=== PATIENT | male | born 1965 | race Hispanic/Latino ===

== ENCOUNTER 2016-10-18 13:04 | Emergency (ER) | payer OTHER ==
--- NOTE | 2016-10-18 13:49 | Emergency Department Report ---
ED General Adult HPI - General Chief complaint: High BP Stated complaint: htn Time Seen by Provider: 10/18/16 13:49 Source: patient, old records reviewed (from [facility]) Mode of arrival: Ambulatory Limitations: No Limitations - History of Present Illness -: Gradual Associated Symptoms: other (dmd visit for tooth extraction). denies: confusion , chest pain, cough, diaphoresis, fever/chills Treatments Prior to Arrival: none - Related Data Previous Rx's Medication Instructions Recorded Last Taken Type Hydrochlorothiazide [HCTZ] 25 mg PO QDAY #30 tablet 10/18/16 Unknown Rx Allergies Allergy/AdvReac Type Severity Reaction Status Date / Time No Known Allergies Allergy Verified 10/18/16 13:21 ED Review of Systems ROS: Stated complaint: HIGH B/P, COUGH Other details as noted in HPI Comment: All other systems reviewed and negative Constitutional: no symptoms reported, see HPI. denies: chills, diaphoresis, fever, malaise Eyes: as per HPI. denies: eye pain ENT: as per HPI, dental pain. denies: ear pain, throat pain, hearing loss, epistaxis Respiratory: no symptoms reported, see HPI, cough (chronic). denies: orthopnea Cardiovascular: as per HPI. denies: chest pain, palpitations, dyspnea on exertion, orthopnea Endocrine: no symptoms reported, see HPI. denies: excessive sweating, flushing , intolerance to cold, intolerance to heat Gastrointestinal: as per HPI. denies: abdominal pain, nausea Genitourinary: as per HPI. denies: urgency, dysuria Musculoskeletal: as per HPI. denies: back pain Skin: as per HPI. denies: rash, lesions Neurological: as per HPI. denies: headache, weakness, numbness, paresthesias, confusion Psychiatric: as per HPI. denies: anxiety, depression Hematological/Lymphatic: as per HPI. denies: easy bleeding ED Past Medical Hx - Past Medical History Hx Hypertension: Yes (off meds) Additional medical history: HYPERTHYROIDISM - Surgical History Past Surgical History?: No - Family History Family history: no significant - Social History Smoking Status: Never Smoker Substance Use Type: None - Medications Home Medications: Home Medications Medication Instructions Recorded Confirmed Last Taken Type Hydrochlorothiazide [HCTZ] 25 mg PO QDAY #30 tablet 10/18/16 Unknown Rx ED Physical Exam - General Limitations: No Limitations General appearance: alert - Head Head exam: Present: atraumatic - Eye Eye exam: Present: normal appearance - ENT ENT exam: Present: mucous membranes moist, other (caries) - Neck Neck exam: Present: normal inspection - Respiratory Respiratory exam: Present: normal lung sounds bilaterally - Cardiovascular Cardiovascular Exam: Present: regular rate, other (100 on exam) - GI/Abdominal GI/Abdominal exam: Present: soft - Rectal Rectal exam: Present: deferred - Extremities Exam Extremities exam: Present: normal inspection - Back Exam Back exam: Present: normal inspection - Neurological Exam Neurological exam: Present: alert, oriented X3, CN II-XII intact, normal gait, reflexes normal. Absent: abnormal gait, motor sensory deficit - Psychiatric Psychiatric exam: Present: normal affect, normal mood. Absent: depressed, agitated, anxious, flat affect, manic, homicidal ideation, suicidal ideation - Skin Skin exam: Present: warm, dry, intact. Absent: normal color, rash ED Course Vital Signs 10/18/16 13:25 Temperature 98.2 F Pulse Rate 103 H Respiratory 17 Rate Blood Pressure 154/86 O2 Sat by Pulse 98 Oximetry - Reevaluation(s) Reevaluation #1: 10/18/16 14:28 to er from [facility] bc bp was 160/100 prior to tooth extraction they told him it was too high and sent him here he has rx for norco and amox bp dec here no cp no sob on bp meds for htn at one time but stopped them bc no md does not recall the name neuro intact no murillo no focal neuro def medicated here for dental pain rx for hctz follow up pcp pt educated on bp and influence of pain and anxiety informed bp now dec and wo s/s we will restart med- provider 140/80 bp ED Medical Decision Making - Medical Decision Making bp n ow dec- off his meds anxious at [facility] pain w tooth - Differential Diagnosis htn a/c off meds. was at [facility] and bp 160/100- sent here Critical care attestation.: If time is entered above; I have spent that time in minutes in the direct care of this critically ill patient, excluding procedure time. ED Disposition Clinical Impression: Dental caries, Hypertension, Nonadherence to medical treatment Disposition: TO HOME OR SELFCARE Is pt being admited?: No Does the pt Need Aspirin: No Condition: Stable Instructions: Dental Caries (ED), Chronic Hypertension (ED), DASH Eating Plan ( ED), Low Sodium Diet (ED), Hypertension (ED) Additional Instructions: follow up dmd this week take RX for pain and antibiotic as provided by the dentist today follow up pcp for recheck related to bp see attached educational papers to help you to keep bp controlled good oral care Prescriptions: Hydrochlorothiazide [HCTZ] 25 mg PO QDAY #30 tablet Referrals: ELISA BUCKNER MD [Staff Physician] - 3-5 Days Time of Disposition: 14:04
[2016-10-18] MEDS ORDERED: TORADOL IM ONE (14:01)
[2016-10-18] MEDS ORDERED: BICILLIN L-A IM ONE (14:01)
[2016-10-18 14:39] VITALS: BP 150/88
== END 2016-10-18 14:39 | disposition home or self-care (01) ==
LOC: ED 13:04
DX: K02.9 Dental caries, unspecified (principal); I10 Essential (primary) hypertension; Z91.14 Patient's other noncompliance with medication regimen
CPT/HCPCS: 96372; 99282; J0561; J1885

== ENCOUNTER 2018-04-01 23:37 | Emergency (ER) | payer OTHER ==
[2018-04-02 00:08] VITALS: BP 167/88
--- NOTE | 2018-04-02 00:31 | XRay Report ---
FINAL REPORT PROCEDURE: XR CHEST ROUTINE 2V TECHNIQUE: PA and lateral chest radiographs were obtained. CPT 50165 HISTORY: Upper Respiratory Infection COMPARISON: No prior studies are available for comparison. FINDINGS: Heart: Normal. Mediastinum/Vessels: Normal. Lungs/Pleural space: Normal. Bony thorax: No acute osseous abnormality. Other: IMPRESSION: Normal examination.
--- NOTE | 2018-04-02 01:58 | Emergency Department Report ---
Addendum entered and electronically signed by ENRRIQUE KENNY PA 04/02/18 04:11: The time of discharge the patient's heart rate did increase to 120 at the hip development had a vomiting episode is read did go ahead and place an IV in the patient, transfuse him 2 units 2 L of normal saline in conjunction with a CBC, CMP. His electrolytes were normal. White count slightly elevated heart rate did respond to fluids that complaining of any chest pain or any palpitations. He is not having any issues with presyncope. Chest x-ray was normal. No swelling to her lower extremities Original Note: - General Chief Complaint: Upper Respiratory Infection Stated Complaint: POSS URI Time Seen by Provider: 04/02/18 01:04 Source: patient Mode of arrival: Ambulatory Limitations: No Limitations - History of Present Illness MD Complaint: cough, rhinorrhea, nasal congestion -: Sudden, days(s) (4) Severity: moderate Severity scale (0 -10): 3 Quality: dull Improves With: nothing Worsens With: nothing Context: sick contacts Associated Symptoms: chills, myalgias, rhinorrhea, nasal congestion, sore throat, cough. denies: confusion, weight loss, epistaxis - Related Data Previous Rx's Medication Instructions Recorded Last Taken Type hydroCHLOROthiazide [HCTZ] 25 mg PO QDAY #30 tablet 10/18/16 Unknown Rx ALBUTEROL Inhaler (OR & NICU) 1 puff IH Q4-6H PRN #1 inha 04/02/18 Unknown Rx [ProAir HFA Inhaler] Azithromycin [Zithromax] 500 mg PO QDAY #3 tablet 04/02/18 Unknown Rx guaiFENesin/CODEINE [Robitussin AC] 5 ml PO Q6H PRN #120 ml 04/02/18 Unknown Rx Allergies Allergy/AdvReac Type Severity Reaction Status Date / Time No Known Allergies Allergy Verified 10/18/16 13:21 ED Review of Systems ROS: Stated complaint: POSS URI Other details as noted in HPI Constitutional: denies: chills, fever Eyes: denies: eye pain, eye discharge, vision change ENT: denies: ear pain, throat pain Respiratory: cough. denies: shortness of breath, wheezing Cardiovascular: denies: chest pain, palpitations Endocrine: no symptoms reported Gastrointestinal: denies: abdominal pain, nausea, diarrhea Genitourinary: denies: urgency, dysuria Musculoskeletal: denies: back pain, joint swelling, arthralgia Skin: denies: rash, lesions Neurological: denies: headache, weakness, paresthesias Psychiatric: denies: anxiety, depression Hematological/Lymphatic: denies: easy bleeding, easy bruising ED Past Medical Hx - Past Medical History Previous Medical History?: No Hx Hypertension: Yes (Not taking medication for the past 3 years) Additional medical history: HYPERTHYROIDISM - Surgical History Past Surgical History?: No - Social History Smoking Status: Never Smoker Substance Use Type: None - Medications Home Medications: Home Medications Medication Instructions Recorded Confirmed Last Taken Type hydroCHLOROthiazide [HCTZ] 25 mg PO QDAY #30 tablet 10/18/16 Unknown Rx ALBUTEROL Inhaler (OR & NICU) 1 puff IH Q4-6H PRN #1 inha 04/02/18 Unknown Rx [ProAir HFA Inhaler] Azithromycin [Zithromax] 500 mg PO QDAY #3 tablet 04/02/18 Unknown Rx guaiFENesin/CODEINE [Robitussin AC] 5 ml PO Q6H PRN #120 ml 04/02/18 Unknown Rx ED Physical Exam - General Limitations: No Limitations General appearance: alert, in no apparent distress - Head Head exam: Present: atraumatic, normocephalic - Eye Eye exam: Present: normal appearance, PERRL, EOMI - ENT ENT exam: Present: normal exam, mucous membranes moist, other (nasal congestion bilaterally. Ears small effusion to the left tympanic membrane. Pharynx has mild erythema but no exudate or swelling.) - Neck Neck exam: Present: normal inspection, full ROM. Absent: tenderness, lymphadenopathy - Respiratory Respiratory exam: Present: normal lung sounds bilaterally. Absent: respiratory distress, wheezes, rhonchi, chest wall tenderness, accessory muscle use, decreased breath sounds - Cardiovascular Cardiovascular Exam: Present: regular rate, normal rhythm. Absent: systolic murmur, diastolic murmur, rubs, gallop - GI/Abdominal GI/Abdominal exam: Present: soft, normal bowel sounds - Rectal Rectal exam: Present: deferred - Extremities Exam Extremities exam: Present: normal inspection - Back Exam Back exam: Present: normal inspection - Neurological Exam Neurological exam: Present: alert, oriented X3 - Psychiatric Psychiatric exam: Present: normal affect, normal mood - Skin Skin exam: Present: warm, dry, intact, normal color. Absent: rash ED Course Vital Signs 04/02/18 00:03 Temperature 98.7 F Pulse Rate 118 H Respiratory 16 Rate Blood Pressure 167/88 O2 Sat by Pulse 97 Oximetry ED Medical Decision Making - Radiology Data Radiology results: report reviewed X-ray of the chest was negative for any acute processes - Medical Decision Making Productive Cough with yellow and green mucus and congestion to the sinus causing pressure to the frontal region. 52-year-old male reports a past past medical history of an unknown type of COPD and has no history of smoking. He denies no wheezing at present does not use but does use albuterol or any inhaler type medications at home. Is requesting antibodies. Chest x-ray is negative for pneumonia or effusion. Symptoms are suggestive of a bronchitis/URI. Heart rate at the time of discharge is 110 Critical care attestation.: If time is entered above; I have spent that time in minutes in the direct care of this critically ill patient, excluding procedure time. ED Disposition Clinical Impression: URI (upper respiratory infection), Cough Disposition: DC-01 TO HOME OR SELFCARE Is pt being admited?: No Does the pt Need Aspirin: No Condition: Stable Instructions: Acute Bronchitis (ED), Dextromethorphan (By mouth), Cold Symptoms (ED) Referrals: SHELLEY CANELA DO [Primary Care Provider] - 3-5 Days
[2018-04-02] MEDS ORDERED: NACL 0.9% 1000 ML 1,000 ML IV ONE ×2 (03:00→03:40)
[2018-04-02] MEDS ORDERED: ZOFRAN IV ONE (03:00)
[2018-04-02] MEDS ORDERED: ZOFRAN ONE (03:02)
[2018-04-02] MEDS ORDERED: NACL 0.9% 1000 ML 1,000 ML ONE ×2 (03:02→03:43)
[2018-04-02 03:07] LABS: Basophils % (Auto) 0.3 % (0.0-1.8); Eosinophils # (Auto) 0.2 K/mm3 (0.0-0.4); Eosinophils % (Auto) 1.5 % (0.0-4.3); Hematocrit 47.5 % (35.5-45.6); Lymphocytes # (Auto) 1.2 K/mm3 (1.2-5.4); Lymphocytes % (Auto) 8.2 % (13.4-35.0); Mean Corpuscular HGB Conc 34 % (32-34); Mean Corpuscular Volume 89 fl (84-94); Monocytes # (Auto) 1.2 K/mm3 (0.0-0.8); Monocytes % (Auto) 8.5 % (0.0-7.3); Platelet Count 269 K/mm3 (140-440); Red Blood Count 5.35 M/mm3 (3.65-5.03); Red Cell Distribution Width 12.7 % (13.2-15.2)
[2018-04-02 03:24] LABS: Alanine Aminotransferase 25 units/L (7-56); Albumin 4.3 g/dL (3.9-5); BUN/Creatinine Ratio 30; Blood Urea Nitrogen 21 mg/dL (9-20); Calcium 9.3 mg/dL (8.4-10.2); Hemolysis Index 8
[2018-04-02] MEDS ORDERED: TORADOL IV ONE (03:40)
[2018-04-02] MEDS ORDERED: TORADOL ONE (03:43)
[2018-04-02] MEDS ORDERED: TYLENOL PO ONE (03:54)
[2018-04-02] MEDS ORDERED: TYLENOL ONE (03:58)
== END 2018-04-02 04:25 | disposition home or self-care (01) ==
LOC: ED 23:37
DX: J06.9 Acute upper respiratory infection, unspecified (principal); I10 Essential (primary) hypertension; E05.90 Thyrotoxicosis, unspecified without thyrotoxic crisis or storm; R11.10 Vomiting, unspecified
CPT/HCPCS: 36415; 71046; 80053; 85025; 96361; 96374; 96375; 99284; J1885; J2405; J7030

== ENCOUNTER 2018-04-03 11:39 | Inpatient (IN) | payer OTHER ==
[2018-04-03] MEDS ORDERED: TYLENOL PO ONE (11:48)
[2018-04-03] MEDS ORDERED: TYLENOL ONE (11:48)
[2018-04-03] MEDS ORDERED: NACL 0.9% 500 ML 500 ML IV ONE (11:48)
[2018-04-03] MEDS ORDERED: DUONEB *Not for PRN Use IH ONE (11:56)
[2018-04-03 12:25] LABS: Basophils # (Auto) 0.1 K/mm3 (0.0-0.1); Basophils % (Auto) 0.6 % (0.0-1.8); Hematocrit 45.9 % (35.5-45.6); Hemoglobin 16.1 gm/dl (11.8-15.2); Lymphocytes # (Auto) 0.5 K/mm3 (1.2-5.4); Lymphocytes % (Auto) 4.3 % (13.4-35.0); Mean Corpuscular HGB Conc 35 % (32-34); Mean Corpuscular Volume 87 fl (84-94); Monocytes # (Auto) 1.5 K/mm3 (0.0-0.8); Monocytes % (Auto) 13.9 % (0.0-7.3); Platelet Count 204 K/mm3 (140-440); Red Blood Count 5.31 M/mm3 (3.65-5.03); Red Cell Distribution Width 12.7 % (13.2-15.2)
[2018-04-03] MEDS ORDERED: LEVAQUIN 750MG/150ML 750 MG/150 ML BAG IV ONE (12:34)
[2018-04-03 12:38] LABS: Alanine Aminotransferase 23 units/L (7-56); Albumin 4.4 g/dL (3.9-5); BUN/Creatinine Ratio 19; Blood Urea Nitrogen 15 mg/dL (9-20); Calcium 8.6 mg/dL (8.4-10.2); Hemolysis Index 0
--- NOTE | 2018-04-03 12:42 | XRay Report ---
FINAL REPORT EXAM: XR CHEST 1V AP HISTORY: possible Sepsis COMPARISON: Chest radiograph performed on 04/01/2017 TECHNIQUE: Single frontal view of the chest FINDINGS: The cardiomediastinal silhouette is normal in appearance. The lungs are clear without focal consolidation. No pleural effusion or pneumothorax. No acute bony or soft tissue abnormality. IMPRESSION: No acute cardiopulmonary disease.
[2018-04-03 12:57] LABS: INR 1.1 (0.87-1.13)
[2018-04-03 12:58] LABS: Partial Thromboplastin Time 27.3 Sec. (24.2-36.6)
[2018-04-03] MEDS ORDERED: MERREM 1,000 MG in NACL 0.9% 100 ML IV ONE (13:00)
--- NOTE | 2018-04-03 14:16 | Emergency Department Report ---
ED General Adult HPI - General Chief complaint: Fever Stated complaint: CAN'T SLEEP Time Seen by Provider: 04/03/18 11:53 Source: patient Mode of arrival: Ambulatory Limitations: No Limitations - History of Present Illness Initial comments: 52-year-old male was seen here 2-3 days ago and discharged with a diagnosis of bronchitis. He states that he was given an antibiotic(azithromycin). He has been compliant. He arrives at triage and is found to have a tachycardia and fever. His pulse oximetry was 92-93%. Sepsis screening was positive. Patient arrives with his mother that provides additional information. 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 He is able to work however. The mother states that he got a pneumonia from being in a sil[place] in [place] and had a concussion. In any case the patient can provide some historical information. The mother states that he has frequent musculoskeletal spasms of his chest. He states that he's had some of those recently. As far as I can tell he is not complaining of acute chest pain. He does report pleuritic pain. Chest disease occasional "muscle spasms". Patient has had no recent travel. He denies any leg pain or swelling. -: Gradual, days(s) Location: chest Radiation: other (typical spasms across the chest as above described) Severity scale (0 -10): 5 Quality: other Consistency: intermittent Improves with: none Worsens with: none Associated Symptoms: cough, shortness of breath, weakness Treatments Prior to Arrival: other (antibiotics given prior visit) - Related Data Previous Rx's Medication Instructions Recorded Last Taken Type hydroCHLOROthiazide [HCTZ] 25 mg PO QDAY #30 tablet 10/18/16 Unknown Rx ALBUTEROL Inhaler (OR & NICU) 1 puff IH Q4-6H PRN #1 inha 04/02/18 Unknown Rx [ProAir HFA Inhaler] Azithromycin [Zithromax] 500 mg PO QDAY #3 tablet 04/02/18 Unknown Rx guaiFENesin/CODEINE [Robitussin AC] 5 ml PO Q6H PRN #120 ml 04/02/18 Unknown Rx Allergies Allergy/AdvReac Type Severity Reaction Status Date / Time No Known Allergies Allergy Verified 04/03/18 11:46 ED Review of Systems ROS: Stated complaint: CAN'T SLEEP Other details as noted in HPI Constitutional: denies: chills, fever Eyes: denies: eye pain, eye discharge, vision change ENT: denies: ear pain, throat pain Respiratory: see HPI Cardiovascular: as per HPI, chest pain. denies: palpitations Endocrine: no symptoms reported Gastrointestinal: denies: abdominal pain, nausea, diarrhea Genitourinary: denies: urgency, dysuria Musculoskeletal: denies: back pain, joint swelling, arthralgia Skin: denies: rash, lesions Neurological: denies: headache, weakness, paresthesias Psychiatric: denies: anxiety, depression Hematological/Lymphatic: denies: easy bleeding, easy bruising ED Past Medical Hx - Past Medical History Hx Hypertension: Yes (Not taking medication for the past 3 years) Additional medical history: HYPERTHYROIDISM - Social History Smoking Status: Never Smoker Substance Use Type: None - Medications Home Medications: Home Medications Medication Instructions Recorded Confirmed Last Taken Type hydroCHLOROthiazide [HCTZ] 25 mg PO QDAY #30 tablet 10/18/16 Unknown Rx ALBUTEROL Inhaler (OR & NICU) 1 puff IH Q4-6H PRN #1 inha 04/02/18 Unknown Rx [ProAir HFA Inhaler] Azithromycin [Zithromax] 500 mg PO QDAY #3 tablet 04/02/18 Unknown Rx guaiFENesin/CODEINE [Robitussin AC] 5 ml PO Q6H PRN #120 ml 04/02/18 Unknown Rx ED Physical Exam - General Limitations: No Limitations General appearance: alert, in no apparent distress - Head Head exam: Present: atraumatic, normocephalic - Eye Eye exam: Present: normal appearance, PERRL, EOMI. Absent: scleral icterus - ENT ENT exam: Present: mucous membranes moist - Neck Neck exam: Present: normal inspection. Absent: tenderness, meningismus - Respiratory Respiratory exam: Present: rhonchi. Absent: respiratory distress, accessory muscle use - Cardiovascular Cardiovascular Exam: Present: normal rhythm, tachycardia. Absent: systolic murmur, diastolic murmur, rubs, gallop - GI/Abdominal GI/Abdominal exam: Present: soft, normal bowel sounds. Absent: distended, tenderness, guarding, rebound, rigid - Rectal Rectal exam: Present: deferred - Extremities Exam Extremities exam: Present: normal inspection, full ROM, normal capillary refill. Absent: tenderness, pedal edema, joint swelling, calf tenderness - Back Exam Back exam: Present: normal inspection. Absent: CVA tenderness (R), CVA tenderness (L) - Neurological Exam Neurological exam: Present: alert, oriented X3, CN II-XII intact. Absent: motor sensory deficit - Psychiatric Psychiatric exam: Present: normal affect, normal mood - Skin Skin exam: Present: warm, dry, intact, normal color. Absent: rash ED Course Vital Signs 04/03/18 04/03/18 04/03/18 11:46 12:00 12:10 Temperature 102 F H Pulse Rate 123 H Pulse Rate [ 111 H 110 H Anterior Bilateral Throughout] Respiratory 22 Rate Respiratory 18 20 Rate [Anterior Bilateral Throughout] Blood Pressure 149/87 Blood Pressure [Right] O2 Sat by Pulse 93 Oximetry 04/03/18 04/03/18 04/03/18 12:38 12:42 12:45 Temperature 99.6 F Pulse Rate 116 H 107 H 109 H Pulse Rate [ Anterior Bilateral Throughout] Respiratory 20 Rate Respiratory Rate [Anterior Bilateral Throughout] Blood Pressure 133/75 Blood Pressure 138/71 [Right] O2 Sat by Pulse 99 95 93 Oximetry 04/03/18 04/03/18 04/03/18 13:00 13:15 13:32 Temperature Pulse Rate 106 H 102 H Pulse Rate [ Anterior Bilateral Throughout] Respiratory 32 H Rate Respiratory Rate [Anterior Bilateral Throughout] Blood Pressure 127/68 127/68 Blood Pressure [Right] O2 Sat by Pulse 94 95 96 Oximetry 04/03/18 14:32 Temperature 99.0 F Pulse Rate Pulse Rate [ Anterior Bilateral Throughout] Respiratory Rate Respiratory Rate [Anterior Bilateral Throughout] Blood Pressure Blood Pressure [Right] O2 Sat by Pulse Oximetry ED Medical Decision Making - Lab Data Result diagrams: 04/03/18 12:04 04/03/18 12:04 Laboratory Results - last 24 hr 04/03/18 04/03/18 04/03/18 12:04 12:04 12:04 WBC 10.9 RBC 5.31 H Hgb 16.1 H Hct 45.9 H MCV 87 MCH 30 MCHC 35 H RDW 12.7 L Plt Count 204 Lymph % (Auto) 4.3 L Benzie % (Auto) 13.9 H Eos % (Auto) 0.0 Baso % (Auto) 0.6 Lymph # 0.5 L Benzie # 1.5 H Eos # 0.0 Baso # 0.1 Seg Neutrophils % 81.2 H Seg Neutrophils # 8.9 H PT INR APTT VBG pH Sodium 132 L Potassium 4.1 Chloride 94.0 L Carbon Dioxide 22 Anion Gap 20 BUN 15 Creatinine 0.8 Estimated GFR > 60 BUN/Creatinine Ratio 19 Glucose 122 H Lactic Acid 0.90 Calcium 8.6 Magnesium Total Bilirubin 0.60 AST 26 ALT 23 Alkaline Phosphatase 85 NT-Pro-B Natriuret Pep Total Protein 7.3 Albumin 4.4 Albumin/Globulin Ratio 1.5 04/03/18 04/03/18 04/03/18 12:04 12:07 12:07 WBC RBC Hgb Hct MCV MCH MCHC RDW Plt Count Lymph % (Auto) Benzie % (Auto) Eos % (Auto) Baso % (Auto) Lymph # Benzie # Eos # Baso # Seg Neutrophils % Seg Neutrophils # PT 14.6 INR 1.10 APTT 27.3 VBG pH 7.431 H Sodium Potassium Chloride Carbon Dioxide Anion Gap BUN Creatinine Estimated GFR BUN/Creatinine Ratio Glucose Lactic Acid Calcium Magnesium 1.80 Total Bilirubin AST ALT Alkaline Phosphatase NT-Pro-B Natriuret Pep 411.0 Total Protein Albumin Albumin/Globulin Ratio - EKG Data -: EKG Interpreted by Me EKG shows normal: sinus rhythm, axis, intervals, QRS complexes, ST-T waves Rate: tachycardia - EKG Data Interpretation: no acute changes - Radiology Data Radiology results: report reviewed (chest x-ray no acute process. CT angiogram minimal dependent atelectasis on the right no PE no pneumonia) Critical care attestation.: If time is entered above; I have spent that time in minutes in the direct care of this critically ill patient, excluding procedure time. ED Disposition Clinical Impression: Viral respiratory infection, Hypoxia, SIRS (systemic inflammatory response syndrome), Hyponatremia, Volume depletion Disposition: OP ADMIT IP TO THIS HOSP Is pt being admited?: Yes Does the pt Need Aspirin: Yes Condition: Stable Referrals: AURORA DIETRICH MD [Primary Care Provider] - 3-5 Days Time of Disposition: 15:14
--- NOTE | 2018-04-03 15:03 | Cat Scan Report ---
FINAL REPORT EXAM: CT ANGIO CHEST HISTORY: dyspnea, hypoxia COMPARISON: None. TECHNIQUE: Multiple contiguous axial images were obtained from the thoracic inlet upper abdomen afte r administration of IV contrast. Reformatted sagittal and coronal images were available for review. M aximal intensity projection 3D images were also provided for review. FINDINGS: Medical devices: None. Thyroid: Normal. Lymph nodes: No significant mediastinal, hilar, or axillary lymphadenopathy. Vasculature: Normal pulmonary artery. No filling defect to suggest pulmonary embolism. Normal caliber of the thoracic aorta with a conventional branching pattern of the aortic arch. Heart: Normal heart size. Other mediastinal structures: Small hiatal hernia. Lung parenchyma: Minimal dependent atelectasis at the right lung base. No suspicious nodule or mass. Paraseptal cysts along the medial aspect of both lungs. Airways: Patent. No bronchiectasis. Pleura: No pleural effusion or pneumothorax. Chest wall and spine: No suspicious osseous lesions. No acute fracture or dislocation. Upper Abdomen: No acute abnormality. IMPRESSION: 1. No evidence of pulmonary embolism. 2. Minimal dependent atelectasis in the right lung base.
[2018-04-03] MEDS ORDERED: BABY ASPIRIN PO ONE (15:14)
[2018-04-03 15:47] LABS: Free T4 (Free Thyroxine) 2.43 ng/dL (0.76-1.46)
[2018-04-03] MEDS ORDERED: PROAIR IH PRN (17:14)
[2018-04-03] MEDS ORDERED: SODIUM CHLORIDE FLUSH SYRINGE 10 ML IV PRN (17:18)
[2018-04-03] MEDS ORDERED: TYLENOL PO PRN (17:18)
[2018-04-03] MEDS ORDERED: ZOFRAN IV PRN (17:18)
[2018-04-03] MEDS ORDERED: PERCOCET 5/325 PO PRN (17:18)
[2018-04-03] MEDS ORDERED: DILAUDID IV PRN (17:18)
[2018-04-03] MEDS ORDERED: PROVENTIL IH PRN (17:19)
--- NOTE | 2018-04-03 17:22 | History and Physical Report ---
History of Present Illness Date of examination: 04/03/18 Date of admission: 04/03/18 15:55 Chief complaint: Fever and cough one week History of present illness: 52-year-old male with history of traumatic brain injury in the past and recently been treated for bronchitis comes in for high fever and cough. Also shortness of breath and body aches. Patient was treated with Zithromax and he took the full course. Patient continues to have fever and body aches and severe chest spasms secondary to cough Past Medical History Hx Hypertension: Yes (Not taking medication for the past 3 years) Additional medical history: HYPERTHYROIDISM Social History Smoking Status: Never Smoker Substance Use Type: None Family history Htn Medications Home Medications: Home Medications Medication Instructions Recorded Confirmed Last Taken Type hydroCHLOROthiazide [HCTZ] 25 mg PO QDAY #30 tablet 10/18/16 Unknown Rx ALBUTEROL Inhaler (OR & NICU) 1 puff IH Q4-6H PRN #1 inha 04/02/18 Unknown Rx [ProAir HFA Inhaler] Azithromycin [Zithromax] 500 mg PO QDAY #3 tablet 04/02/18 Unknown Rx guaiFENesin/CODEINE [Robitussin AC] 5 ml PO Q6H PRN #120 ml 04/02/18 Unknown Rx Review of Systems ROS: Stated complaint: CAN'T SLEEP Other details as noted in HPI Constitutional: denies: chills, fever Eyes: denies: eye pain, eye discharge, vision change ENT: denies: ear pain, throat pain Respiratory: Alvaro Rhonchi present Cardiovascular: as per HPI, chest pain. denies: palpitations Endocrine: no symptoms reported Gastrointestinal: denies: abdominal pain, nausea, diarrhea Genitourinary: denies: urgency, dysuria Musculoskeletal: denies: back pain, joint swelling, arthralgia Skin: denies: rash, lesions Neurological: denies: headache, weakness, paresthesias Psychiatric: denies: anxiety, depression Hematological/Lymphatic: denies: easy bleeding, easy bruising Medications and Allergies Allergies Allergy/AdvReac Type Severity Reaction Status Date / Time No Known Allergies Allergy Verified 04/03/18 11:46 Home Medications Medication Instructions Recorded Confirmed Last Taken Type ALBUTEROL Inhaler (OR & NICU) 1 puff IH Q4-6H PRN #1 inha 04/02/18 04/02/18 09:00 Rx [ProAir HFA Inhaler] Azithromycin [Zithromax] 500 mg PO QDAY #3 tablet 04/02/18 04/03/18 04/02/18 09:00 Rx guaiFENesin/CODEINE [Robitussin AC] 5 ml PO Q6H PRN #120 ml 04/02/18 Unknown Rx Exam - Constitutional Vitals: Temp Pulse Resp BP Pulse Ox 99.0 F 102 H 13 133/81 96 04/03/18 14:32 04/03/18 16:00 04/03/18 16:00 04/03/18 16:00 04/03/18 13:32 General appearance: Present: no acute distress, well-nourished - EENT Eyes: Present: PERRL ENT: hearing intact, clear oral mucosa - Neck Neck: Present: supple, normal ROM - Respiratory Respiratory effort: normal Respiratory: bilateral: CTA, rhonchi - Cardiovascular Heart rate: 110 Rhythm: regular Heart Sounds: Present: S1 & S2. Absent: rub, click - Extremities Extremities: no ischemia, pulses intact, pulses symmetrical, No edema Peripheral Pulses: within normal limits - Abdominal General gastrointestinal: Present: soft, non-tender, non-distended, normal bowel sounds Male genitourinary: Present: normal - Integumentary Integumentary: Present: clear, warm, dry - Musculoskeletal Musculoskeletal: gait normal, strength equal bilaterally - Psychiatric Psychiatric: appropriate mood/affect, intact judgment & insight - Neurologic Neurologic: CNII-XII intact, moves all extremities - Allied Health Allied health notes reviewed: nursing, case management Results - Labs CBC & Chem 7: 04/03/18 12:04 04/03/18 12:04 Labs: Laboratory Last Values WBC 10.9 K/mm3 (4.5-11.0) 04/03/18 12:04 RBC 5.31 M/mm3 (3.65-5.03) H 04/03/18 12:04 Hgb 16.1 gm/dl (11.8-15.2) H 04/03/18 12:04 Hct 45.9 % (35.5-45.6) H 04/03/18 12:04 MCV 87 fl (84-94) 04/03/18 12:04 MCH 30 pg (28-32) 04/03/18 12:04 MCHC 35 % (32-34) H 04/03/18 12:04 RDW 12.7 % (13.2-15.2) L 04/03/18 12:04 Plt Count 204 K/mm3 (140-440) 04/03/18 12:04 Lymph % (Auto) 4.3 % (13.4-35.0) L 04/03/18 12:04 [place] % (Auto) 13.9 % (0.0-7.3) H 04/03/18 12:04 Eos % (Auto) 0.0 % (0.0-4.3) 04/03/18 12:04 Baso % (Auto) 0.6 % (0.0-1.8) 04/03/18 12:04 Lymph # 0.5 K/mm3 (1.2-5.4) L 04/03/18 12:04 [place] # 1.5 K/mm3 (0.0-0.8) H 04/03/18 12:04 Eos # 0.0 K/mm3 (0.0-0.4) 04/03/18 12:04 Baso # 0.1 K/mm3 (0.0-0.1) 04/03/18 12:04 Seg Neutrophils % 81.2 % (40.0-70.0) H 04/03/18 12:04 Seg Neutrophils # 8.9 K/mm3 (1.8-7.7) H 04/03/18 12:04 PT 14.6 Sec. (12.2-14.9) 04/03/18 12:07 INR 1.10 (0.87-1.13) 04/03/18 12:07 APTT 27.3 Sec. (24.2-36.6) 04/03/18 12:07 VBG pH 7.431 (7.320-7.420) H 04/03/18 12:07 Sodium 132 mmol/L (137-145) L 04/03/18 12:04 Potassium 4.1 mmol/L (3.6-5.0) 04/03/18 12:04 Chloride 94.0 mmol/L (98-107) L 04/03/18 12:04 Carbon Dioxide 22 mmol/L (22-30) 04/03/18 12:04 Anion Gap 20 mmol/L 04/03/18 12:04 BUN 15 mg/dL (9-20) 04/03/18 12:04 Creatinine 0.8 mg/dL (0.8-1.5) 04/03/18 12:04 Estimated GFR > 60 ml/min 04/03/18 12:04 BUN/Creatinine Ratio 19 % 04/03/18 12:04 Glucose 122 mg/dL (75-100) H 04/03/18 12:04 Lactic Acid 0.70 mmol/L (0.7-2.0) 04/03/18 14:38 Calcium 8.6 mg/dL (8.4-10.2) 04/03/18 12:04 Magnesium 1.80 mg/dL (1.7-2.3) 04/03/18 12:04 Total Bilirubin 0.60 mg/dL (0.1-1.2) 04/03/18 12:04 AST 26 units/L (5-40) 04/03/18 12:04 ALT 23 units/L (7-56) 04/03/18 12:04 Alkaline Phosphatase 85 units/L (35-129) 04/03/18 12:04 NT-Pro-B Natriuret Pep 411.0 pg/mL (0-900) 04/03/18 12:04 Total Protein 7.3 g/dL (6.3-8.2) 04/03/18 12:04 Albumin 4.4 g/dL (3.9-5) 04/03/18 12:04 Albumin/Globulin Ratio 1.5 % 04/03/18 12:04 TSH < 0.005 mlU/mL (0.270-4.200) L 04/03/18 14:38 Free T4 2.43 ng/dL (0.76-1.46) H 04/03/18 14:38 Short CBC 04/03/18 Range/Units 12:04 WBC 10.9 (4.5-11.0) K/mm3 Hgb 16.1 H (11.8-15.2) gm/dl Hct 45.9 H (35.5-45.6) % Plt Count 204 (140-440) K/mm3 BMP 04/03/18 12:04 Sodium 132 L Potassium 4.1 Chloride 94.0 L Carbon Dioxide 22 BUN 15 Creatinine 0.8 Glucose 122 H Calcium 8.6 Liver Function 04/03/18 Range/Units 12:04 Total Bilirubin 0.60 (0.1-1.2) mg/dL AST 26 (5-40) units/L ALT 23 (7-56) units/L Alkaline Phosphatase 85 (35-129) units/L Albumin 4.4 (3.9-5) g/dL Short CBC 04/03/18 Range/Units 12:04 WBC 10.9 (4.5-11.0) K/mm3 Hgb 16.1 H (11.8-15.2) gm/dl Hct 45.9 H (35.5-45.6) % Plt Count 204 (140-440) K/mm3 BMP 04/03/18 12:04 Sodium 132 L Potassium 4.1 Chloride 94.0 L Carbon Dioxide 22 BUN 15 Creatinine 0.8 Glucose 122 H Calcium 8.6 Liver Function 04/03/18 Range/Units 12:04 Total Bilirubin 0.60 (0.1-1.2) mg/dL AST 26 (5-40) units/L ALT 23 (7-56) units/L Alkaline Phosphatase 85 (35-129) units/L Albumin 4.4 (3.9-5) g/dL - Imaging and Cardiology EKG: report reviewed (sinus tachycardia heart rate of 106, LVH by voltage criteria) Chest x-ray: report reviewed CT scan - chest: report reviewed Imaging and Cardiology: CTA Chest IMPRESSION: 1. No evidence of pulmonary embolism. 2. Minimal dependent atelectasis in the right lung base. Chest x-ray IMPRESSION: No acute cardiopulmonary disease Assessment and Plan Advance Directives: Yes (full code) VTE prophylaxis?: Chemical Plan of care discussed with patient/family: Yes - Patient Problems (1) SIRS (systemic inflammatory response syndrome) Current Visit: Yes Status: Acute Plan to address problem: Patient still has fever wheezing and cough. IV fluids and IV antibiotics for now No infiltrate on chest x-rays but clinical picture consistent with pneumonia (2) Viral syndrome Current Visit: Yes Status: Acute Plan to address problem: Symptomatic treatment Tamiflu for now Influenza titers were ordered (3) Acute bronchitis Current Visit: Yes Status: Acute Qualifiers: Bronchitis organism: unspecified organism Qualified Code(s): J20.9 - Acute bronchitis, unspecified Plan to address problem: Patient initiated on IV Rocephin and Zithromax, IV fluids and Duonebs (4) Hyponatremia Current Visit: Yes Status: Acute Plan to address problem: Mild Should correct with IV normal saline (5) Hyperthyroidism Current Visit: Yes Status: Chronic Plan to address problem: Patient has a history of hypothyroidism Thyroid panel ordered TSH is low and T4 high Patient started on methimazole 5 mg 3 times a day (6) Hypertension Current Visit: Yes Status: Chronic Qualifiers: Hypertension type: essential hypertension Qualified Code(s): I10 - Essential (primary) hypertension Plan to address problem: Patient not taking any medications We'll trend his blood pressure and start antihypertensives if necessary (7) DVT prophylaxis Current Visit: Yes Status: Acute Plan to address problem: On Lovenox and GI prophylaxis
[2018-04-03 19:19] LABS: Free T4 (Free Thyroxine) 2.29 ng/dL (0.76-1.46)
[2018-04-03] MEDS: NACL 0.9% 1000 ML 1,000 ML IV SCH (20:19)
[2018-04-03] MEDS: ROCEPHIN/NS 2 GM/100 ML 2 GM/100 ML BAG IV SCH (20:38)
[2018-04-03] MEDS: ZITHROMAX 500 MG in NACL 0.9% 250ML 250 ML IV SCH (21:07)
[2018-04-03] MEDS: DUONEB *Not for PRN Use IH SCH (21:50)
[2018-04-03] MEDS: PEPCID IV SCH (23:17)
[2018-04-03] MEDS: TAPAZOLE PO SCH (23:17)
[2018-04-03] MEDS: TAMIFLU PO SCH (23:17)
[2018-04-03] MEDS: SODIUM CHLORIDE FLUSH SYRINGE 10 ML IV SCH (23:20)
[2018-04-04 03:51] LABS: Hematocrit 46.1 % (35.5-45.6); Hemoglobin 15.4 gm/dl (11.8-15.2); Mean Corpuscular HGB Conc 33 % (32-34); Mean Corpuscular Volume 89 fl (84-94); Platelet Count 182 K/mm3 (140-440); Red Blood Count 5.19 M/mm3 (3.65-5.03); Red Cell Distribution Width 12.9 % (13.2-15.2)
[2018-04-04 04:14] LABS: Alanine Aminotransferase 23 units/L (7-56); Albumin 3.6 g/dL (3.9-5); BUN/Creatinine Ratio 21; Blood Urea Nitrogen 15 mg/dL (9-20); Calcium 8.3 mg/dL (8.4-10.2); Hemolysis Index 10
[2018-04-04 04:15] LABS: Bilirubin,Urine NEG (Negative); Blood,Urine NEG (Negative); Color,Urine Yellow (Yellow); Mucus,Urine FEW /HPF; Urobilinogen,Urine < 2.0 mg/dL (<2.0)
[2018-04-04 05:43] LABS: Band Neutrophils # (Manual) 1.2 K/mm3; Basophils % (Manual) 0 % (0.0-1.8); Eosinophils % (Manual) 0 % (0.0-4.3); Total Cells Counted 100
[2018-04-04 05:44] LABS: Anisocytosis 1+; Platelet Estimate Consistent w Auto
[2018-04-04] MEDS: TAPAZOLE PO SCH ×3 (06:36→22:29)
[2018-04-04] MEDS: DUONEB *Not for PRN Use IH SCH ×4 (08:03→20:11)
[2018-04-04] MEDS: TAMIFLU PO SCH ×3 (10:30→22:29)
[2018-04-04] MEDS: PEPCID IV SCH ×3 (10:30→22:28)
[2018-04-04] MEDS: SODIUM CHLORIDE FLUSH SYRINGE 10 ML IV SCH ×2 (10:31→22:38)
[2018-04-04] MEDS: ZITHROMAX 500 MG in NACL 0.9% 250ML 250 ML IV SCH (10:32)
--- NOTE | 2018-04-04 10:39 | Progress Note ---
Assessment and Plan / SIRS (systemic inflammatory response syndrome) Patient still has fever and cough. IV fluids and IV antibiotics for now No infiltrate on chest x-rays but clinical picture consistent with pneumonia / Viral syndrome Symptomatic treatment Tamiflu for now Influenza titers were ordered /Acute bronchitis Patient initiated on IV Rocephin and Zithromax, IV fluids and Duonebs / Hyponatremia Mild Should correct with IV normal saline / Hyperthyroidism Patient has a history of hypothyroidism Thyroid panel ordered TSH is low and T4 high Patient started on methimazole 5 mg 3 times a day / Hypertension Patient not taking any medications We'll trend his blood pressure and start antihypertensives if necessary /DVT prophylaxis On Lovenox and GI prophylaxis Subjective Date of service: 04/04/18 Interval history: Pt seen and examined Resting on bed, but states feels very congested and having generalized bodyache tolerating diet but poor appetite Objective - Constitutional Vitals: Vital Signs - 12hr 04/04/18 04/04/18 04/04/18 05:30 08:03 08:06 Temperature 98.4 F Pulse Rate 110 H Pulse Rate [ 102 H Anterior Bilateral Throughout] Respiratory 24 Rate Respiratory 18 Rate [Anterior Bilateral Throughout] Blood Pressure 152/92 O2 Sat by Pulse 99 94 Oximetry 04/04/18 08:13 Temperature Pulse Rate Pulse Rate [ 100 H Anterior Bilateral Throughout] Respiratory Rate Respiratory 18 Rate [Anterior Bilateral Throughout] Blood Pressure O2 Sat by Pulse Oximetry General appearance: Present: no acute distress, well-nourished - EENT Eyes: PERRL, EOM intact, no scleral icterus, conjunctival injection ENT: hearing intact, clear oral mucosa Ears: bilateral: normal - Neck Neck: supple, normal ROM - Respiratory Respiratory effort: normal Respiratory: bilateral: CTA - Cardiovascular Rhythm: regular Heart Sounds: Present: S1 & S2. Absent: gallop, rub Extremities: pulses intact, No edema, normal color, Full ROM - Gastrointestinal General gastrointestinal: Present: soft, non-tender, non-distended, normal bowel sounds - Integumentary Integumentary: clear, warm, dry - Musculoskeletal Musculoskeletal: 1, strength equal bilaterally - Neurologic Neurologic: moves all extremities - Psychiatric Psychiatric: memory intact, appropriate mood/affect, intact judgment & insight - Labs CBC & Chem 7: 04/04/18 03:36 04/04/18 03:36 Labs: Abnormal lab results 04/03/18 04/03/18 04/03/18 Range/Units 12:04 12:04 12:07 RBC 5.31 H (3.65-5.03) M/mm3 Hgb 16.1 H (11.8-15.2) gm/dl Hct 45.9 H (35.5-45.6) % MCHC 35 H (32-34) % RDW 12.7 L (13.2-15.2) % Lymph % (Auto) 4.3 L (13.4-35.0) % [place] % (Auto) 13.9 H (0.0-7.3) % Lymph # 0.5 L (1.2-5.4) K/mm3 [place] # 1.5 H (0.0-0.8) K/mm3 Seg Neutrophils % 81.2 H (40.0-70.0) % Lymphocytes % (Manual) (13.4-35.0) % Monocytes % (Manual) (0.0-7.3) % Seg Neutrophils # 8.9 H (1.8-7.7) K/mm3 Lymphocytes # (Manual) (1.2-5.4) K/mm3 VBG pH 7.431 H (7.320-7.420) Sodium 132 L (137-145) mmol/L Chloride 94.0 L (98-107) mmol/L Creatinine (0.8-1.5) mg/dL Glucose 122 H (75-100) mg/dL Calcium (8.4-10.2) mg/dL Albumin (3.9-5) g/dL TSH (0.270-4.200) mlU/mL Free T4 (0.76-1.46) ng/dL Urine WBC (Auto) (0.0-6.0) /HPF 04/03/18 04/03/18 04/04/18 Range/Units 14:38 17:49 03:36 RBC 5.19 H (3.65-5.03) M/mm3 Hgb 15.4 H (11.8-15.2) gm/dl Hct 46.1 H (35.5-45.6) % MCHC (32-34) % RDW 12.9 L (13.2-15.2) % Lymph % (Auto) (13.4-35.0) % [place] % (Auto) (0.0-7.3) % Lymph # (1.2-5.4) K/mm3 [place] # (0.0-0.8) K/mm3 Seg Neutrophils % (40.0-70.0) % Lymphocytes % (Manual) 10.0 L (13.4-35.0) % Monocytes % (Manual) 13.0 H (0.0-7.3) % Seg Neutrophils # (1.8-7.7) K/mm3 Lymphocytes # (Manual) 0.6 L (1.2-5.4) K/mm3 VBG pH (7.320-7.420) Sodium (137-145) mmol/L Chloride (98-107) mmol/L Creatinine (0.8-1.5) mg/dL Glucose (75-100) mg/dL Calcium (8.4-10.2) mg/dL Albumin (3.9-5) g/dL TSH < 0.005 L < 0.005 L (0.270-4.200) mlU/mL Free T4 2.43 H 2.29 H (0.76-1.46) ng/dL Urine WBC (Auto) (0.0-6.0) /HPF 04/04/18 04/04/18 Range/Units 03:36 03:50 RBC (3.65-5.03) M/mm3 Hgb (11.8-15.2) gm/dl Hct (35.5-45.6) % MCHC (32-34) % RDW (13.2-15.2) % Lymph % (Auto) (13.4-35.0) % [place] % (Auto) (0.0-7.3) % Lymph # (1.2-5.4) K/mm3 [place] # (0.0-0.8) K/mm3 Seg Neutrophils % (40.0-70.0) % Lymphocytes % (Manual) (13.4-35.0) % Monocytes % (Manual) (0.0-7.3) % Seg Neutrophils # (1.8-7.7) K/mm3 Lymphocytes # (Manual) (1.2-5.4) K/mm3 VBG pH (7.320-7.420) Sodium 135 L (137-145) mmol/L Chloride (98-107) mmol/L Creatinine 0.7 L (0.8-1.5) mg/dL Glucose 106 H (75-100) mg/dL Calcium 8.3 L (8.4-10.2) mg/dL Albumin 3.6 L (3.9-5) g/dL TSH (0.270-4.200) mlU/mL Free T4 (0.76-1.46) ng/dL Urine WBC (Auto) 7.0 H (0.0-6.0) /HPF - Imaging and cardiology Chest x-ray: report reviewed CT scan - chest: report reviewed
[2018-04-04] MEDS: NACL 0.9% 1000 ML 1,000 ML IV SCH (17:44)
[2018-04-04] MEDS: ROCEPHIN/NS 2 GM/100 ML 2 GM/100 ML BAG IV SCH (22:26)
[2018-04-04] MEDS ORDERED: ROBITUSSIN AC PO PRN (22:59)
[2018-04-05] MEDS: TAPAZOLE PO SCH ×2 (05:23→14:54)
[2018-04-05] MEDS: DUONEB *Not for PRN Use IH SCH ×3 (07:40→17:27)
[2018-04-05] MEDS: PEPCID IV SCH (10:18)
[2018-04-05] MEDS: SODIUM CHLORIDE FLUSH SYRINGE 10 ML IV SCH (10:18)
[2018-04-05] MEDS: TAMIFLU PO SCH (10:19)
[2018-04-05] MEDS: ZITHROMAX 500 MG in NACL 0.9% 250ML 250 ML IV SCH (10:19)
[2018-04-05 12:32] VITALS: BP 142/84
--- NOTE | 2018-04-05 13:41 | Discharge Summary ---
Providers - Providers Date of Admission: 04/03/18 15:55 Date of discharge: 04/05/18 Attending physician: MARYANN PLATA Primary care physician: AURORA DIETRICH Hospitalization Reason for admission: fever cough Condition: Stable Pertinent studies: CXR, CTA Hospital course: 52-year-old male with history of traumatic brain injury in the past and recently been treated for bronchitis comes in for high fever and cough. Also shortness of breath and body aches. Patient was treated with Zithromax and he took the full course. Patient continues to have fever and body aches and severe chest spasms secondary to cough. he was admitted for further evaluation and management. Discharge diagnosis and management: / SIRS (systemic inflammatory response syndrome) Patient presented with fever and cough. Placed on IV fluids and IV antibiotics for now No infiltrate on chest x-rays but clinical picture likely consistent with Viral symptom / Viral syndrome Symptomatic treatment with Tamiflu Influenza titers were ordered but never obtained /Acute bronchitis, possible viral Patient initially placed on IV Rocephin and Zithromax, IV fluids and Duonebs he was discharged with zithromax to cover for atypicals / Hyponatremia Mild, corrected with IV normal saline / Hyperthyroidism Patient has a history of hyperthyroidism, but was not taking any meds Thyroid panel ordered TSH is low and T4 high Patient started on methimazole 5 mg 3 times a day / Hypertension, diet controlled /DVT prophylaxis On Lovenox and GI prophylaxis Disposition: TO HOME OR SELFCARE Time spent for discharge: 34 minutes Core Measure Documentation - Palliative Care Palliative Care/ Comfort Measures: Not Applicable - Core Measures Any of the following diagnoses?: none Exam - Physical Exam Narrative exam: General appearance: Present: no acute distress, well-nourished - EENT Eyes: PERRL, EOM intact, no scleral icterus, conjunctival injection ENT: hearing intact, clear oral mucosa Ears: bilateral: normal - Neck Neck: supple, normal ROM - Respiratory Respiratory effort: normal Respiratory: bilateral: CTA - Cardiovascular Rhythm: regular Heart Sounds: Present: S1 & S2. Absent: gallop, rub Extremities: pulses intact, No edema, normal color, Full ROM - Gastrointestinal General gastrointestinal: Present: soft, non-tender, non-distended, normal bowel sounds - Integumentary Integumentary: clear, warm, dry - Musculoskeletal Musculoskeletal: 1, strength equal bilaterally - Neurologic Neurologic: moves all extremities - Psychiatric Psychiatric: memory intact, appropriate mood/affect, intact judgment & insight - Constitutional Vitals: Temp Pulse Resp BP Pulse Ox 99.1 F 97 H 24 142/84 99 04/05/18 12:28 04/05/18 12:28 04/05/18 12:28 04/05/18 12:28 04/05/18 12:28 Plan Activity: advance as tolerated Weight Bearing Status: Weight Bear as Tolerated Diet: regular Additional Instructions: repeat TSh and T4 in 2- 4 weeks Follow up with: AURORA DIETRICH MD [Primary Care Provider] - 3-5 Days Forms: Work/School Release Form Prescriptions: Azithromycin [Zithromax TAB] 500 mg PO QDAY #4 tablet methIMAzole [Tapazole] 5 mg PO Q8HR #90 tablet Oseltamivir [Tamiflu] 75 mg PO BID #4 capsule
[2018-04-05 16:42] LABS: Amphetamine Screen,Urine PRESUMPTIVE NEGATIVE; Benzodiazepines Screen,Urine PRESUMPTIVE NEGATIVE; Cocaine Screen,Urine PRESUMPTIVE NEGATIVE; Methadone Screen,Urine PRESUMPTIVE NEGATIVE
[2018-04-05 16:57] LABS: Cannabinoid Screen,Urine PRESUMPTIVE NEGATIVE; Opiate Screen,Urine PRESUMPTIVE POSITIVE
[2018-04-06] MEDS ORDERED: ZITHROMAX PO SCH (10:00)
== END 2018-04-05 15:45 | disposition home or self-care (01) | DRG 202 ==
LOC: ED 11:39 → 3A 15:55
PROVIDERS: ADMIT Internal Medicine; ATTEND Internal Medicine
DX: J20.9 Acute bronchitis, unspecified (principal); E87.1 Hypo-osmolality and hyponatremia; R65.10 Systemic inflammatory response syndrome (SIRS) of non-infectious origin without acute organ dysfunction; J98.8 Other specified respiratory disorders; I10 Essential (primary) hypertension; E05.90 Thyrotoxicosis, unspecified without thyrotoxic crisis or storm; E86.9 Volume depletion, unspecified; B33.8 Other specified viral diseases; Z82.49 Family history of ischemic heart disease and other diseases of the circulatory system; Z79.899 Other long term (current) drug therapy; Z79.51 Long term (current) use of inhaled steroids
CPT/HCPCS: 36415; 71045; 71275; 80053; 80307; 81001; 82140; 82805; 83735; 83880; 84439; 84443; 85007; 85025; 85610; 85730; 87040; 87086; 93005; 93010; 94640; 94760; G0378; J0456; J0696; J1956; J2185; J7030; J7040; J7050; Q9967

== ENCOUNTER 2018-12-17 20:38 | Emergency (ER) | payer OTHER ==
--- NOTE | 2018-12-17 21:09 | Event Note ---
ED Screening Note Date of service: 12/17/18 Time: 21:09 ED Screening Note: Pt complains of right hip pain after fall x today This initial assessment/diagnostic orders/clinical plan/treatment(s) is/are subject to change based on patients health status, clinical progression and re- assessment by fellow clinical providers in the ED. Further treatment and workup at subsequent clinical providers discretion. Patient/guardian urged not to elope from the ED as their condition may be serious if not clinically assessed and managed. Initial orders include: XR
--- NOTE | 2018-12-17 22:39 | XRay Report ---
Right humerus, 2 views INDICATION: Pain following fall FINDINGS: The humerus is intact with no fracture or dislocation seen. Signer Name: Geoff Plata MD Signed: 12/17/2018 10:34 PM Workstation Name: [id number]
--- NOTE | 2018-12-17 22:43 | XRay Report ---
Right hip, 3 views INDICATION: Pain following fall tonight FINDINGS: There is slight narrowing of the right hip joint. There is no fracture or dislocation. Mini mal spurring is seen with slight subchondral sclerosis on the acetabular side. No acute abnormality. Signer Name: Geoff Plata MD Signed: 12/17/2018 10:38 PM Workstation Name: [id number]
[2018-12-17] MEDS ORDERED: DECADRON IM ONE (22:53)
[2018-12-17] MEDS ORDERED: NORCO 5/325 PO ONE (22:53)
[2018-12-17] MEDS ORDERED: IBUPROFEN PO ONE (22:53)
--- NOTE | 2018-12-18 00:31 | Emergency Department Report ---
ED Lower Extremity HPI - General Chief Complaint: Fall Stated Complaint: RT HIP PAIN Time Seen by Provider: 12/17/18 22:52 Source: patient, EMS Mode of arrival: Wheelchair Limitations: Physical Limitation - History of Present Illness Initial Comments: pt is a 53 y/o male who presents for complaint of right lateral hip pain s/p glf at work. Pt states he was pulling a hose and slipped and fell on the floor impacting his right hip. There was no loc, pt was immediately ambulatory on scene, pt arrived to ed via ambulance however ambulated into ed and transfered self into chair. pain is now described as 6/10 aching and sharp. pain is exacerbated by weight bearing pain is improved by off loading. there is no abrasion laceration or bleeding, MD Complaint: hip injury Onset/Timin -: hour(s) Injury: Pelvis: Right (right laterl hip pain ) Type of Injury: blunt Place: work Severity: moderate Severity scale (0 -10): 6 Worsens With: nothing Context: fall Associated Symptoms: able to partially bear weight. denies: snap/pop sensation, swelling, numbness, tingling - Related Data Previous Rx's Medication Instructions Recorded Last Taken Type ALBUTEROL Inhaler (OR & NICU) 1 puff IH Q4-6H PRN #1 inha 04/02/18 04/02/18 09:00 Rx [ProAir HFA Inhaler] guaiFENesin/CODEINE [Robitussin AC] 5 ml PO Q6H PRN #120 ml 04/02/18 Unknown Rx Azithromycin [Zithromax TAB] 500 mg PO QDAY #4 tablet 04/05/18 Unknown Rx Oseltamivir [Tamiflu] 75 mg PO BID #4 capsule 04/05/18 Unknown Rx methIMAzole [Tapazole] 5 mg PO Q8HR #90 tablet 04/05/18 Unknown Rx Cyclobenzaprine [Flexeril] 10 mg PO TID PRN #30 tablet 12/18/18 Unknown Rx Naproxen 500 mg PO BID PRN #30 tablet 12/18/18 Unknown Rx predniSONE [Deltasone] 40 mg PO QDAY 5 Days #10 tab 12/18/18 Unknown Rx Allergies Allergy/AdvReac Type Severity Reaction Status Date / Time No Known Allergies Allergy Verified 04/03/18 11:46 ED Review of Systems ROS: Stated complaint: RT HIP PAIN Other details as noted in HPI Constitutional: denies: chills, fever Eyes: denies: eye pain, eye discharge, vision change ENT: denies: ear pain, throat pain Respiratory: denies: cough, shortness of breath, wheezing Cardiovascular: denies: chest pain, palpitations Endocrine: no symptoms reported Gastrointestinal: denies: abdominal pain, nausea, diarrhea Genitourinary: denies: urgency, dysuria Musculoskeletal: arthralgia, myalgia, other (right lateral hip pain ) Skin: denies: rash, lesions Neurological: denies: headache, weakness, paresthesias Psychiatric: denies: anxiety, depression Hematological/Lymphatic: denies: easy bleeding, easy bruising ED Past Medical Hx - Past Medical History Hx Hypertension: Yes Hx Congestive Heart Failure: No Hx Diabetes: No Hx Asthma: No Hx COPD: Yes Additional medical history: HYPERTHYROIDISM - Surgical History Past Surgical History?: No - Social History Smoking Status: Never Smoker Substance Use Type: None - Medications Home Medications: Home Medications Medication Instructions Recorded Confirmed Last Taken Type ALBUTEROL Inhaler (OR & NICU) 1 puff IH Q4-6H PRN #1 inha 04/02/18 04/02/18 09:00 Rx [ProAir HFA Inhaler] guaiFENesin/CODEINE [Robitussin AC] 5 ml PO Q6H PRN #120 ml 04/02/18 Unknown Rx Azithromycin [Zithromax TAB] 500 mg PO QDAY #4 tablet 04/05/18 Unknown Rx Oseltamivir [Tamiflu] 75 mg PO BID #4 capsule 04/05/18 Unknown Rx methIMAzole [Tapazole] 5 mg PO Q8HR #90 tablet 04/05/18 Unknown Rx Cyclobenzaprine [Flexeril] 10 mg PO TID PRN #30 tablet 12/18/18 Unknown Rx Naproxen 500 mg PO BID PRN #30 tablet 12/18/18 Unknown Rx predniSONE [Deltasone] 40 mg PO QDAY 5 Days #10 tab 12/18/18 Unknown Rx ED Physical Exam - General Limitations: Physical Limitation General appearance: alert, in no apparent distress - Head Head exam: Present: normocephalic, normal inspection - Expanded Head Exam Expanded Head exam: Absent: laceration, abrasion, contusion, hematoma - Eye Eye exam: Present: normal appearance, PERRL, EOMI Pupils: Present: normal accommodation - ENT ENT exam: Present: normal orophraynx, mucous membranes moist - Neck Neck exam: Present: normal inspection, full ROM. Absent: tenderness, meningismus, lymphadenopathy, thyromegaly - Expanded Neck Exam Expanded Neck exam: Absent: tenderness (no posterior vertebral point tenderness no swelling no deformity rom intact to all [place] without restriction), midline deformity, anterior neck swelling, thyroid mass, carotid bruit, tracheal deviation - Respiratory Respiratory exam: Present: normal lung sounds bilaterally. Absent: respiratory distress, wheezes, stridor, chest wall tenderness - Cardiovascular Cardiovascular Exam: Present: regular rate, normal rhythm, normal heart sounds. Absent: systolic murmur, diastolic murmur, rubs, gallop - GI/Abdominal GI/Abdominal exam: Present: soft, normal bowel sounds. Absent: distended, tenderness, bruit, hernia - Rectal Rectal exam: Present: deferred - Extremities Exam Extremities exam: Present: normal inspection, tenderness (right lateral hip ), normal capillary refill. Absent: pedal edema, joint swelling - Expanded Lower Extremity Exam Right Hip exam: Present: tenderness. Absent: swelling, abrasion, laceration, ecchymosis, deformity, crepidus, dislocation, erythema, external rotation, internal rotation, shortening, pelvic stability Upper Leg exam: Present: full ROM. Absent: tenderness Knee exam: Present: full ROM. Absent: tenderness Lower Leg exam: Present: full ROM. Absent: tenderness Foot/Toe exam: Present: full ROM. Absent: tenderness Neuro vascular tendon exam: Absent: pulse deficit, motor deficit, sensory deficit, tendon deficit Gait: Positive: observed and limited by pain - Back Exam Back exam: Present: normal inspection, full ROM. Absent: tenderness, CVA tenderness (R), CVA tenderness (L), muscle spasm, paraspinal tenderness, vertebral tenderness, rash noted - Neurological Exam Neurological exam: Present: alert, oriented X3, CN II-XII intact, normal gait, reflexes normal. Absent: motor sensory deficit - Expanded Neurological Exam Expanded Patient oriented to: Present: person, place, time Speech: Present: fluid speech Cranial nerves: EOM's Intact: Normal, Gag Reflex: Normal, Tongue Deviation: Normal, Nystagmus: Normal, Facial Sensation: Normal Motor strength exam: RUE: 5, LUE: 5, RLE: 5, LLE: 5 DTR: ankle (R): 2+, ankle (L): 2+ Best Eye Response ([place]): (4) open spontaneously Best Motor Response ([place]): (6) obeys commands Best Verbal Response ([place]): (5) oriented [place] Total: 15 - Psychiatric Psychiatric exam: Present: normal affect, normal mood - Skin Skin exam: Present: warm, dry, intact, normal color. Absent: rash ED Course Vital Signs 12/17/18 12/18/18 12/18/18 20:44 00:00 00:01 Temperature 97.8 F Pulse Rate 107 H Respiratory 18 16 16 Rate Blood Pressure 156/76 [Right] O2 Sat by Pulse 97 Oximetry ED Lower Extremity MDM - Radiology Data Radiology results: report reviewed, image reviewed Referring Physician: GIACOMO PARKER Patient Name: HANNAH MORALES Date of : 1965 Sex: Male Report Date: 2018-12-17 Report Status: Finalized Findings [address] [address] XRay Report Signed Patient: HANNAH MORALES JR MR #: [id number] : 1965 Acct:[id number] Age/Sex: 53 / M ADM Date: 12/17/18 Loc: ED Attending Dr: Ordering Physician: GIACOMO PARKER Date of Service: 12/17/18 Procedure(s): XR humerus 2+V RT Accession Number(s): [id number] cc: GIACOMO PARKER Fluoro Time In Minutes: Right humerus, 2 views INDICATION: Pain following fall FINDINGS: The humerus is intact with no fracture or dislocation seen. Signer Name: Geoff Plata MD Signed: 12/17/2018 10:34 PM Workstation Name: [id number] Transcribed By: JM Dictated By: Geoff Plata MD Electronically Authenticated By: Geoff Plata MD Signed Date/Time: 12/17/182233 DD/ 32 TD/TT: Findings [address] [address] XRay Report Signed Patient: HANNAH MORALES JR MR #: [id number] : 1965 Acct:[id number] Age/Sex: 53 / M ADM Date: 12/17/18 Loc: ED Attending Dr: Ordering Physician: GIACOMO PARKER Date of Service: 12/17/18 Procedure(s): XR hip 2-3V RT Accession Number(s): [id number] cc: GIACOMO PARKER Fluoro Time In Minutes: Right hip, 3 views INDICATION: Pain following fall tonight FINDINGS: There is slight narrowing of the right hip joint. There is no fracture or dislocation. Minimal spurring is seen with slight subchondral sclerosis on the acetabular side. No acute abnormality. Signer Name: Geoff Plata MD Signed: 12/17/2018 10:38 PM Workstation Name: [id number] Transcribed By: KYLEE Dictated By: Geoff Plata MD Electronically Authenticated By: Geoff Plata MD Signed Date/Time: 12/17/182237 DD/ 35 TD/TT: - Medical Decision Making xrays: no fracture , mild chronic degenerative changes no acute fracture, 7/10 pain decreased to 2/10 . ROM intact adduction abduction of hip without difficulty, joint is stable, and pt is ambulatory to baseline at this time per patient. There is no abrasion no swelling no ecchymosis pt is ambulatory with steady gait at thit time Critical care attestation.: If time is entered above; I have spent that time in minutes in the direct care of this critically ill patient, excluding procedure time. ED Disposition Clinical Impression: Musculoskeletal pain of right upper extremity Hip strain Qualifiers: Encounter type: initial encounter Laterality: right Qualified Code(s): S76.011A - Strain of muscle, fascia and tendon of right hip, initial encounter Disposition: - TO HOME OR SELFCARE Is pt being admited?: No Does the pt Need Aspirin: No Condition: Stable Instructions: Muscle Strain (ED), Fall Prevention (ED) Prescriptions: predniSONE [Deltasone] 40 mg PO QDAY 5 Days #10 tab Cyclobenzaprine [Flexeril] 10 mg PO TID PRN #30 tablet PRN Reason: Muscle Spasm Naproxen 500 mg PO BID PRN #30 tablet PRN Reason: pain Referrals: RUDOLPH SALINAS MD [Staff Physician] - 3-5 Days Forms: Work/School Release Form(ED) Time of Disposition: 00:47
[2018-12-18 03:53] VITALS: BP 152/93
== END 2018-12-18 01:15 | disposition home or self-care (01) ==
LOC: ED 20:38
DX: S76.011A Strain of muscle, fascia and tendon of right hip, initial encounter (principal); I10 Essential (primary) hypertension; Z79.899 Other long term (current) drug therapy; E05.00 Thyrotoxicosis with diffuse goiter without thyrotoxic crisis or storm
CPT/HCPCS: 73060; 73502; J1100; 96372